=== PATIENT | female | born 1980 | race Caucasian/White ===

== ENCOUNTER 2016-11-09 15:22 | Emergency (ER) | payer MEDICAID ==
[~2016-11-09] VITALS: Wt 79.5 kg
--- NOTE | 2016-11-09 16:55 | ERD ---
ER Documentation Chief Complaint Date/Time DATE: 11/09/16 TIME: 16:54 Chief Complaint r. flank pain HPI This is a 36-year-old female who presents the emergency department today complaining of left-sided flank pain that started yesterday. Patient denies any dysuria, nausea vomiting fevers or chills. ROS All systems reviewed and are negative except as per history of present illness. Allergies Allergies: Coded Allergies: No Known Allergy (Unverified , 11/09/16) PMhx/Soc Medical and Surgical Hx: pt denies Medical Hx Hx Alcohol Use: No Hx Substance Use: No Hx Tobacco Use: Yes (1 CIGAR /WEEK) Smoking Status: Never smoker Physical Exam Vitals Vital Signs Date Time Temp Pulse Resp B/P Pulse Ox O2 Delivery O2 Flow Rate FiO2 11/09/16 15:24 97.8 76 20 129/84 100 Physical Exam Const: No acute distress Head: Atraumatic Eyes: Normal Conjunctiva ENT: Normal External Ears, Nose and Mouth. Neck: Full range of motion..~ No meningismus. Resp: Clear to auscultation bilaterally Cardio: Regular rate and rhythm, no murmurs Abd: Soft, non tender, non distended. Normal bowel sounds Skin: No petechiae or rashes Back: Left sided flank pain. No midline tenderness. No CVA tenderness. Ext: No cyanosis, or edema Neur: Awake and alert Psych: Normal Mood and Affect Result Diagram: 11/09/16 1710 11/09/16 1710 Results 24 hrs Laboratory Tests Test 11/09/16 17:10 Alanine Aminotransferase (ALT/SGPT) 22IU/L Albumin 4.5g/dl Albumin/Globulin Ratio 1.45 Alkaline Phosphatase 101IU/L Anion Gap 19 Aspartate Amino Transf (AST/SGOT) 20IU/L Basophils # 0.010^3/ul Basophils % 0.3% Blood Urea Nitrogen 11mg/dl Calcium Level 9.4mg/dl Carbon Dioxide Level 26mmol/L Chloride Level 101mmol/L Creatinine 0.74mg/dl Direct Bilirubin 0.00mg/dl Eosinophils # 0.210^3/ul Eosinophils % 2.6% Globulin 3.10g/dl Glucose Level 92mg/dl Hematocrit 40.8% Hemoglobin 13.9g/dl Indirect Bilirubin 0.3mg/dl Lymphocytes # 2.410^3/ul Lymphocytes % 26.6% Mean Corpuscular Hemoglobin 30.7pg Mean Corpuscular Hemoglobin Concent 34.0g/dl Mean Corpuscular Volume 90.3fl Mean Platelet Volume 8.8fl Monocytes # 0.810^3/ul Monocytes % 9.1% Neutrophils # 5.610^3/ul Neutrophils % 61.4% Nucleated Red Blood Cells # 0.010^3/ul Nucleated Red Blood Cells % 0.0/100WBC Platelet Count 23593^3/UL Potassium Level 3.9mmol/L Red Blood Count 4.5210^6/ul Red Cell Distribution Width 13.1% Sodium Level 142mmol/L Total Bilirubin 0.3mg/dl Total Protein 7.6g/dl Urine Amorphous Phosphates MANY Urine Bacteria FEW Urine Bilirubin NEGATIVE Urine Clarity CLOUDY Urine Color LT. YELLOW Urine Glucose NEGATIVE% Urine Hemoglobin NEGATIVE Urine Ketones NEGATIVE Urine Leukocyte Esterase NEGATIVE Urine Microscopic RBC NONE SEEN/HPF Urine Microscopic WBC NONE SEEN/HPF Urine Nitrite NEGATIVE Urine Specific [place] 1.015 Urine Squamous Epithelial Cells MANY Urine Total Protein NEGATIVE Urine Urobilinogen 0.2 E.U./dL Urine pH 7.5 White Blood Count 9.210^3/ul Current Medications Medications (Trade) Dose Ordered Sig/Freddie Route PRN Reason Start Time Stop Time Status Last Admin Dose Admin Acetaminophen/ Hydrocodone Bitart (Crewe (5/325)) 1 tab ONCE ONCE PO 11/09/16 17:00 11/09/16 17:01 DC 11/09/16 17:11 Procedures/MDM This is a 36-year-old female who presents to the emergency department today complaining of left-sided flank pain. On physical exam patient has left-sided flank pain. She is afebrile and otherwise well-appearing. I did obtain laboratory work as well as a UA Laboratory work shows no elevated white blood cell count. She is not anemic. Platelets are within normal limits. Electrolytes are within normal limits. Glucose is within normal limits. Liver function is within normal limits. UA is negative for infection. There are no microscopic white blood cells. Urine test is negative Patient has flank pain of uncertain etiology at this time. May be musculoskeletal in nature. Low suspicion for urinary tract infection, pyelonephritis or nephrolithiasis. Patient was given a Crewe here in the emergency department and pain improved. Patient will be given a prescription for Naprosyn for home. At this time the patient is stable for discharge and outpatient management. Patient should follow up with their PCP in the next 1-2 days. They may return to the emergency department sooner for any persistent or worsening of symptoms. Patient understood and agreed with the plan. Departure Diagnosis: Primary Impression: Flank pain Condition: Fair JOSEFA ROSENBAUM PA-C Nov 09, 2016 16:55
[2016-11-09] MEDS ORDERED: HYDROCODONE/APAP (5/325) TAB PO ONE (17:00)
[2016-11-09 17:20] LABS: BASOPHILS % 0.3 % (0.0-2.0); EOSINOPHILS # 0.2 10^3/ul (0.0-0.5); EOSINOPHILS % 2.6 % (0.0-7.0); HEMATOCRIT 40.8 % (37.0-47.0); HEMOGLOBIN 13.9 g/dl (12.0-16.0); LYMPHOCYTES # 2.4 10^3/ul (0.8-2.9); LYMPHOCYTES % 26.6 % (15.0-51.0); MEAN CORPUSCULAR HEMOGLOBIN 30.7 pg (29.0-33.0); MEAN CORPUSCULAR VOLUME 90.3 fl (82.0-101.0); MEAN PLATELET VOLUME 8.8 fl (7.4-10.4); MONOCYTE # 0.8 10^3/ul (0.3-0.9); MONOCYTES % 9.1 % (0.0-11.0); NEUTROPHIL # 5.6 10^3/ul (1.6-7.5); NEUTROPHILS % 61.4 % (39.0-77.0); PLATELET COUNT 244 10^3/UL (140-440); RED BLOOD COUNT 4.52 10^6/ul (4.20-5.40); RED CELL DISTRIBUTION WIDTH 13.1 % (11.5-14.5); UNCORRECTED WBC 9.2 10^3/ul (4.8-10.8); WHITE BLOOD COUNT 9.2 10^3/ul (4.8-10.8)
[2016-11-09 17:24] LABS: CONDITION 1
[2016-11-09 17:27] LABS: ADD UMIC YES; URINE BILIRUBIN (Dip) NEGATIVE (NEGATIVE); URINE BLOOD (Dip) NEGATIVE (NEGATIVE); URINE COLOR LT. YELLOW (YELLOW); URINE GLUCOSE (Dip) NEGATIVE (NEGATIVE); URINE KETONES (Dip) NEGATIVE (NEGATIVE); URINE LEUKOCYTE ESTERASE (Dip) NEGATIVE (NEGATIVE); URINE NITRITE (Dip) NEGATIVE (NEGATIVE); URINE TOTAL PROTEIN (Dip) NEGATIVE (NEGATIVE); URINE UROBILINOGEN (Dip) 0.2 E.U./dL (0.1-1.0)
[2016-11-09 17:33] LABS: BACTERIA,URINE FEW; SQUAMOUS EPITHELIAL CELL,UR MANY; URINE RBCS NONE SEEN /HPF (0)
[2016-11-09 17:34] LABS: ALBUMIN 4.5 g/dl (3.3-4.9)
[2016-11-09 17:35] LABS: POTASSIUM 3.9 mmol/L (3.5-5.1)
[2016-11-09 17:37] LABS: BILIRUBIN,INDIRECT 0.3 mg/dl (0-1.1); BILIRUBIN,TOTAL 0.3 mg/dl (0.2-1.3); CREATININE 0.74 mg/dl (0.44-1.00); TOTAL PROTEIN 7.6 g/dl (6.1-8.1)
[2016-11-09 17:38] LABS: CALCIUM 9.4 mg/dl (8.4-10.2)
[2016-11-09 17:41] LABS: ALBUMIN/GLOBULIN RATIO 1.45
[2016-11-09] MEDS ORDERED: NAPR-260 PO (18:09)
== END 2016-11-09 18:24 | disposition home or self-care (01) ==
LOC: FTE 15:22
DX: R10.9 Unspecified abdominal pain (principal); F17.210 Nicotine dependence, cigarettes, uncomplicated
CPT/HCPCS: 80053; 81001; 85025; Z7610; 81003; 99283

== ENCOUNTER 2016-11-17 09:54 | Emergency (ER) | payer MEDICAID ==
[~2016-11-17] VITALS: Ht 160 cm; Wt 78.0 kg
[~2016-11-17 09:54] MED LIST: NAPR-260 PO
[2016-11-17 09:57] VITALS: Ht 160 cm; Wt 78.0 kg
[2016-11-17] MEDS ORDERED: CARB15DR48 LEFT EAR (11:16)
[2016-11-17] MEDS ORDERED: IBUP-1542 PO (11:17)
--- NOTE | 2016-11-17 11:20 | ERD ---
ER Documentation Chief Complaint Date/Time DATE: 11/17/16 TIME: 11:18 Chief Complaint lt ear pain HPI This is a 36-year-old female presents here with left ear pain that started yesterday. Patient denies any fevers or chills. Patient denies any ear discharge. She denies any recent cough or cold symptoms. The patient describes throbbing in quality is nonradiating. It is severe. Patient has not tried anything for the pain. ROS 12 point review of systems was done, all negative except per HPI. Medications Home Meds Active Scripts Ibuprofen* (Motrin*) 600 Mg Tab, 600 MG PO Q6, #30 TAB Prov:IMTIAZ RODRIGUEZ 11/17/16 Carbamide Peroxide* (Debrox*) 6.5% - 15 Ml Drops, 10 DROP LEFT EAR BID for 4 Days, BOTTLE Prov:IMTIAZ RODRIGUEZ 11/17/16 Naproxen* (Naprosyn*) 500 Mg Tablet, 500 MG PO BID Y for PAIN AND/OR INFLAMMATION, #30 TAB Prov:JOSEFA ROSENBAUM PA-C 11/09/16 Allergies Allergies: Coded Allergies: No Known Allergy (Unverified , 11/09/16) PMhx/Soc Medical and Surgical Hx: pt denies Surgical Hx Hx Alcohol Use: No Hx Substance Use: No Hx Tobacco Use: Yes (1 CIGAR /WEEK) Smoking Status: Unknown if ever smoked Physical Exam Vitals Vital Signs Date Time Temp Pulse Resp B/P Pulse Ox O2 Delivery O2 Flow Rate FiO2 11/17/16 09:57 97.9 72 18 146/79 99 Physical Exam GENERAL: The patient is well-developed, well-nourished, in no acute distress. NECK: Cervical spine is non tender with no step off. Supple, no nuchal rigidity HEENT: Atraumatic. Pupils equal, round and reactive to light. Extraocular muscles are grossly intact. Conjunctivae pink, no discharge. There is cerumen impaction in bilateral ears unable to visualize TM secondary to cerumen.. RESPIRATORY: Clear to auscultation bilaterally. There are no rales, wheezes or rhonchi. HEART: Regular rate and rhythm. No murmurs, clicks, rubs or gallops. EXTREMITIES: No clubbing or cyanosis. Full range of motion. Grossly neurovascularly intact. NEUROLOGIC: Alert and oriented. Cranial nerves II through XII are intact. SKIN: There is no rash. The skin is warm and dry. Procedures/MDM This is a 36-year-old female presents to the ER with left ear pain that started yesterday. Patient did have cerumen impaction. Patient's ears were lavaged here in the ER. Cerumen was removed. Patient stated that she felt better. Patient will be sent home with Debrox. Suspicion for otitis media is unable to visualize TMs after procedure and there is no erythema or bulging. Patient needs to follow-up with her primary care doctor within 1-2 days or return to ER sooner if symptoms worsen. Medical decision making sure with the patient she understands and agrees with plan. Departure Diagnosis: Primary Impression: Cerumen impaction Condition: Stable Patient Instructions: Cerumen Impaction, Home Care Additional Instructions: Llame al doctor MAANA y mynor barbara KEYON PARA DENTRO DE 1-2 VANEGAS.Dgale a la secretaria que nosotros le instruimos hacer esta keyon.Avise o llame si colunga condicin se empeora antes de la keyon. Regresa aqui si peor o no mejor. IMTIAZ RODRIGUEZ Nov 17, 2016 11:20
[2016-11-17 11:37] VITALS: BP 138/83; PULSE 72; RESP 18; TEMP 98.3
== END 2016-11-17 11:44 | disposition home or self-care (01) ==
LOC: FTE 09:54
DX: H61.23 Impacted cerumen, bilateral (principal); F17.210 Nicotine dependence, cigarettes, uncomplicated
CPT/HCPCS: 69209; Z7502